=== PATIENT | male | born 1945 | race Caucasian/White ===

== ENCOUNTER 2016-08-22 08:13 | Emergency (ER) | payer OTHER ==
[~2016-08-22] VITALS: Ht 185.4 cm; Wt 93.9 kg
[2016-08-22 08:45] LABS: HEMATOCRIT 41.3 % (38.0-50.0); MCH 29.6 PG (29.0-34.0); MCHC 32.9 G/DL (30.0-36.0); MCV 89.8 FL (86-99); MEAN PLAT.VOLUME 10.3 uM^3 (9.0-12.4); PLATELET COUNT 217 K/uL (156-360); RBC DIS.WIDTH-CV 13.9 % (11.8-14.6); RBC DIS.WIDTH-SD 44.8 % (39-53)
[2016-08-22 08:55] LABS: CHLORIDE 106 mEq/L (99-109); SODIUM 139 mEq/L (136-147)
[2016-08-22 08:57] LABS: GLUCOSE 131 mg/dL (70-99)
[2016-08-22 08:58] LABS: ANION GAP 9 MEQ/L (2-14)
[2016-08-22 09:00] LABS: INTER. NORMALIZED RATIO 1.1; PROTHROMBIN TIME 11.1 (9.2-11.2)
[2016-08-22 09:01] LABS: GFR ESTIMATE (CALCULATED) > 59 mL/min/
[2016-08-22 09:02] LABS: UREA NITROGEN (BUN) 19 mg/dL (9-23)
[2016-08-22 10:42] VITALS: BP 154/88
== END 2016-08-22 10:50 | disposition home or self-care (01) ==
LOC: EME 08:13
PROVIDERS: Emergency Medicine
DX: K92.1 Melena (principal); Z87.891 Personal history of nicotine dependence
CPT/HCPCS: 80048; 85027; 85610; 86850; 86900; 86901; 99281; 99284

== ENCOUNTER → 2016-09-28 | Outpatient (CLI) | payer OTHER ==
[~2016-09-28] VITALS: Ht 185.4 cm; Wt 95.2 kg
[~2016-09-28] MED LIST: B-12 COMPL1000 MCG/1 IM; DAPSONE25 MG PO; LEVO-T150 MCG PO; ZESTRIL20 MG PO
== END | disposition home or self-care (01) ==
LOC: AMB 09:00
PROC: 0DBE8ZZ Excision of Large Intestine, Via Natural or Artificial Opening Endoscopic (ICD-10-PCS; principal; 2016-09-28)
DX: K92.1 Melena (principal); R19.7 Diarrhea, unspecified; D12.0 Benign neoplasm of cecum; D12.2 Benign neoplasm of ascending colon; K64.8 Other hemorrhoids; I10 Essential (primary) hypertension; E03.9 Hypothyroidism, unspecified; I25.10 Atherosclerotic heart disease of native coronary artery without angina pectoris; Z87.891 Personal history of nicotine dependence
CPT/HCPCS: 88305; J2250; J3010